=== PATIENT | female | born 1970 | race Caucasian/White ===

== ENCOUNTER 2019-03-10 19:06 | Emergency (ER) | payer BC, MEDICARE ==
[2019-03-10] MEDS ORDERED: fentaNYL 100 MCG/2 ML SDV NASBOTH ONE (19:51)
--- NOTE | 2019-03-10 19:54 | EDM.PDOC ---
ED HPI GENERAL MEDICAL PROBLEM - General Chief Complaint: Lower Extremity Injury/Pain Stated Complaint: NUMBESS / FREEZING IN BOTH LEGS Time Seen by Provider: 03/10/19 19:49 Source of Information: Reports: Patient, Family, RN Notes Reviewed History Limitations: Reports: No Limitations - History of Present Illness INITIAL COMMENTS - FREE TEXT/NARRATIVE: 48-year-old female presents emergency department today with complaint of bilateral leg pain, she injured herself earlier today approximately 12 hours prior she had multiple pieces of wood from a would stack fall onto both her lower extremities. She has used ibuprofen. But her complaint is increasing pain it's feels her toes are cold no difficulty with ambulation bilateral legs Pain Score (Numeric/FACES): 3 - Related Data Allergies Allergy/AdvReac Type Severity Reaction Status Date / Time adhesive tape Allergy Other Verified 03/10/19 19:21 duloxetine Allergy Nausea Verified 03/10/19 19:24 methadone Allergy Rash Verified 03/10/19 19:24 metronidazole [From Flagyl] Allergy Rash Verified 03/10/19 19:21 nystatin Allergy Rash Verified 03/10/19 19:24 sumatriptan [From Imitrex] Allergy Other Verified 03/10/19 19:21 probiotic capsule Allergy Hives Uncoded 03/10/19 19:24 Home Meds: Home Meds Cyclobenzaprine HCl 10 mg PO ASDIRECTED PRN 03/10/19 [History] Losartan Potassium 50 mg PO BEDTIME 03/10/19 [History] Naproxen 500 mg PO ASDIRECTED PRN 03/10/19 [History] Pravastatin Sodium 10 mg PO BEDTIME 03/10/19 [History] metFORMIN HCl [Metformin HCl] 500 mg PO BEDTIME 03/10/19 [History] Past Medical History HEENT History: Reports: Impaired Vision Cardiovascular History: Reports: High Cholesterol Gastrointestinal History: Reports: Bowel Obstruction, Diverticulosis, Other ( See Below) Other Gastrointestinal History: acid reflux 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 chronic left hip pain Neurological History: Reports: Headaches, Chronic Psychiatric History: Reports: Anxiety, Depression Endocrine/Metabolic History: Reports: Diabetes, Type II - Infectious Disease History Infectious Disease History: Reports: Chicken Pox - Past Surgical History HEENT Surgical History: Reports: Naso-Sinus Surgery, Other (See Below) Other HEENT Surgeries/Procedures: polyps removed from sinuses GI Surgical History: Reports: Appendectomy, Cholecystectomy, Colonoscopy, Hernia Repair/Other, Small Bowel Female Surgical History: Reports: Hysterectomy, Salpingo-Oophorectomy Neurological Surgical History: Reports: Spinal Fusion, Other (See Below) Other Neurological Surgeries/Procedures: C5 and C6 fusion Social & Family History - Tobacco Use Smoking Status *Q: Current Every Day Smoker Years of Tobacco use: 30 Packs/Tins Daily: 1 - Caffeine Use Caffeine Use: Reports: Coffee - Recreational Drug Use Recreational Drug Use: No Review of Systems - Review of Systems Review Of Systems: See Below Constitutional: Reports: No Symptoms Respiratory: Reports: No Symptoms Cardiovascular: Reports: No Symptoms Musculoskeletal: Reports: Leg Pain Skin: Reports: Pallor, Bruising, Change in Color Neurological: Reports: No Symptoms ED EXAM, GENERAL - Physical Exam Exam: See Below Free Text/Narrative:: Examination of the lower extremities I do appreciate multiple bruising above the knee and lower extremities however there is no specific tenderness with palpation of the calf the calf muscles are not tight and dorsiflexion of the foot does not elicit any pain pedal pulses +2 the toes are cold but good capillary refill Exam Limited By: No Limitations General Appearance: Alert, WD/WN, No Apparent Distress Respiratory/Chest: No Respiratory Distress Course - Vital Signs Last Recorded V/S: Last Vital Signs Temp 97.5 F 03/10/19 19:47 Pulse 102 H 03/10/19 19:47 Resp 17 03/10/19 19:47 BP 142/86 H 03/10/19 19:47 Pulse Ox 97 03/10/19 19:47 - Orders/Labs/Meds Meds: Medications Discontinued Medications Generic Name Dose Route Start Last Admin Trade Name Freq PRN Reason Stop Dose Admin Fentanyl 50 mcg 03/10/19 19:51 03/10/19 19:59 Sublimaze NASBOTH 03/10/19 19:52 50 mcg ONETIME ONE Administration Departure - Departure Time of Disposition: 20:37 Disposition: Home, Self-Care 01 Condition: Fair Clinical Impression: Contusion of left lower extremity Qualifiers: Encounter type: initial encounter Qualified Code(s): S80.12XA - Contusion of left lower leg, initial encounter Contusion of right lower extremity Qualifiers: Encounter type: initial encounter Qualified Code(s): S80.11XA - Contusion of right lower leg, initial encounter - Discharge Information Instructions: Contusion, [id number] Referrals: Man Liriano MD [Primary Care Provider] - Forms: ED Department Discharge Additional Instructions: Use ibuprofen as needed for pain control, Please followup with your primary care provider in 3-5 days if not better, please call return to the emergency department with worsening of symptoms. 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
--- NOTE | 2019-03-10 20:30 | CRLCR ---
Indication: Trauma. Technique: Two views of the right lower leg were obtained. Comparison: None Findings: No acute fracture or subluxation is identified. Mild degenerative changes are seen. Impression: No acute fracture Dictated by Alisson Young MD @ Mar 10 2019 8:28PM Signed by Dr. Alisson Young @ Mar 10 2019 8:29PM
--- NOTE | 2019-03-10 20:32 | CRLCR ---
Indication: Bilateral knee pain. Technique: Three views of the right knee were obtained. Three views of the left knee were obtained. Comparison: None Findings: Right knee: Mild narrowing of the medial compartment is identified. No acute fracture subluxation is identified. No significant joint effusion is identified. Narrowing of the lateral patellofemoral articulation is identified. Left knee: Mild narrowing of the medial compartment is identified. No acute fracture subluxation is identified. No significant joint effusion is identified. Narrowing of the lateral patellofemoral articulation is identified. Impression: Degenerative change Dictated by Alisson Young MD @ Mar 10 2019 8:29PM Signed by Dr. Alisson Young @ Mar 10 2019 8:30PM
== END 2019-03-10 20:44 | disposition home or self-care (01) ==
LOC: JP.ED 19:06
DX: S80.11XA Contusion of right lower leg, initial encounter (principal); S80.12XA Contusion of left lower leg, initial encounter; E78.00 Pure hypercholesterolemia, unspecified; E11.9 Type 2 diabetes mellitus without complications; F41.9 Anxiety disorder, unspecified; F32.9 Major depressive disorder, single episode, unspecified; F17.210 Nicotine dependence, cigarettes, uncomplicated; Z91.048 Other nonmedicinal substance allergy status; Z88.8 Allergy status to other drugs, medicaments and biological substances; Z88.1 Allergy status to other antibiotic agents; Z79.84 Long term (current) use of oral hypoglycemic drugs; Z79.899 Other long term (current) drug therapy; W22.8XXA Striking against or struck by other objects, initial encounter
CPT/HCPCS: 73562; 73590; 99284; J3010

== ENCOUNTER 2021-12-25 19:01 | Emergency (ER) | payer MEDICARE ==
[2021-12-25] MEDS ORDERED: HYDROmorphone 0.5 MG/0.5 ML Syringe IM ONE (19:49)
== END 2021-12-25 21:06 | disposition home or self-care (01) ==
LOC: JP.ED 19:01
DX: S52.551A Other extraarticular fracture of lower end of right radius, initial encounter for closed fracture (principal); S30.0XXA Contusion of lower back and pelvis, initial encounter; E78.00 Pure hypercholesterolemia, unspecified; E11.9 Type 2 diabetes mellitus without complications; Z91.048 Other nonmedicinal substance allergy status; Z88.8 Allergy status to other drugs, medicaments and biological substances; Z88.5 Allergy status to narcotic agent; Z88.1 Allergy status to other antibiotic agents; Z88.3 Allergy status to other anti-infective agents; Z79.899 Other long term (current) drug therapy; Z79.84 Long term (current) use of oral hypoglycemic drugs; Z79.82 Long term (current) use of aspirin; Z90.49 Acquired absence of other specified parts of digestive tract; Z90.710 Acquired absence of both cervix and uterus; W01.0XXA Fall on same level from slipping, tripping and stumbling without subsequent striking against object, initial encounter
CPT/HCPCS: 72220; 73110; 96372; 99283; J1170

== ENCOUNTER 2024-05-24 16:55 | Emergency (ER) | payer MEDICARE ==
[2024-05-24] MEDS: Aspirin 81 MG Tab.Chew PO ONE (17:15)
[2024-05-24 17:16] LABS: BASOPHILS ABSOLUTE AUTO 0.05 K/uL (0.00-0.10); BASOPHILS PERCENT AUTO 0.4 % (0.1-1.3); EOSINOPHILS ABSOLUTE AUTO 0.38 K/uL (0.00-0.40); EOSINOPHILS PERCENT AUTO 3.4 % (0.0-5.4); HEMATOCRIT 40.8 % (34.3-46.0); HEMOGLOBIN 14.1 g/dL (11.2-15.5); IMMATURE GRAN ABSOLUTE AUTO 0.02 K/uL (0.00-0.23); IMMATURE GRAN PERCENT AUTO 0.2 % (0.0-0.7); LYMPHOCYTES ABSOLUTE AUTO 4.88 K/uL (0.8-3.3); LYMPHOCYTES PERCENT AUTO 43.2 % (11.4-47.7); MEAN CORPUSCULAR HEMOGLOBIN 30.5 pg (31.6-35.5); MEAN CORPUSCULAR HGB CONC 34.6 g/dL (31.6-35.5); MEAN CORPUSCULAR VOLUME 88.3 fL (81.4-99.0); MONOCYTES ABSOLUTE AUTO 0.69 K/uL (0.20-0.90); MONOCYTES PERCENT AUTO 6.1 % (3.3-12.6); NEUTROPHILS ABSOLUTE AUTO 5.28 K/uL (1.0-7.6); NEUTROPHILS PERCENT AUTO 46.7 % (40.0-78.1); PLATELET COUNT,PLT 351 K/uL (130-375); RED BLOOD CELL COUNT 4.62 M/uL (3.77-5.24); WHITE BLOOD CELL COUNT,WBC 11.3 K/uL (3.2-11.0)
[2024-05-24] MEDS: Clopidogrel 75 MG Tab PO ONE (17:16)
[2024-05-24] MEDS: Heparin Sodium 5,000 Units/ML Vial IVPUSH ONE (17:17)
[2024-05-24] MEDS: Aspirin 81 MG Tab.Chew ONE (17:18)
[2024-05-24] MEDS: Nitroglycerin 0.4 MG Tab.SL SL PRN (17:18)
[2024-05-24 17:28] LABS: INR 0.9; PROTHROMBIN TIME 9.3 sec (9.2-10.6); PTT,PARTIAL THROMBOPLSTIN TIME 19.9 sec (21.8-27.3)
[2024-05-24 17:32] LABS: CALCIUM 9.2 mg/dL (8.5-10.1); CREATININE 1.1 mg/dL (0.6-1.0); EST CRCL DRUG DOSING (CG) 43.61 mL/min; POTASSIUM,K 3.4 mmol/L (3.6-5.2)
[2024-05-24 17:34] LABS: ANION GAP 18.4 mmol/L (5.0-14.0)
[2024-05-24 17:35] LABS: TROPONIN I HIGH SENSITIVITY 189.5 pg/mL (<=60.3)
[2024-05-24] MEDS: Heparin Sodium/D5W 25,000 UNITS/500 ML BAG IV SCH (17:36)
[2024-05-24] MEDS: Sodium Chloride 0.9% 500 ML IV ONE (17:40)
[2024-05-24 18:06] LABS: CORONAVIRUS COVID-19 NAA NEGATIVE (NEGATIVE); INFLUENZA A NAA NEGATIVE (NEGATIVE); INFLUENZA B NAA NEGATIVE (NEGATIVE); RESPIRATORY SYNCYTIAL VIR NAA NEGATIVE (NEGATIVE)
== END 2024-05-24 17:55 ==
LOC: JP.ED 16:55
DX: I21.3 ST elevation (STEMI) myocardial infarction of unspecified site (principal); E78.00 Pure hypercholesterolemia, unspecified; E11.9 Type 2 diabetes mellitus without complications; F17.210 Nicotine dependence, cigarettes, uncomplicated; Z91.048 Other nonmedicinal substance allergy status; Z88.8 Allergy status to other drugs, medicaments and biological substances; Z79.82 Long term (current) use of aspirin; Z79.899 Other long term (current) drug therapy; Z90.49 Acquired absence of other specified parts of digestive tract; Z90.710 Acquired absence of both cervix and uterus
CPT/HCPCS: 0241U; 36415; 71045; 80048; 83735; 84484; 85025; 85610; 85730; 93005; 93010; 96365; 99285; A9270; J1644; J7030